=== PATIENT | female | born 1995 | race Two or more races ===

== ENCOUNTER 2025-04-18 12:21 | Emergency (ER) | payer BC ==
[~2025-04-18] VITALS: Ht 162.6 cm; Wt 90.7 kg
[2025-04-18 12:38] VITALS: BP 128/104; TEMP 98
--- NOTE | 2025-04-18 12:40 | NUR ---
Came in w/pt c/o STD pt states "I think I have the same thing + discharge feel tired".
[2025-04-18] MEDS ORDERED: LIDOCAINE 1% INJ 50 ML MDV IJ ONE (13:11)
[2025-04-18] MEDS ORDERED: ONDANSETRON 4 MG TAB.RAPDIS ONE (13:11)
[2025-04-18] MEDS ORDERED: CEFTRIAXONE 500 MG VIAL ONE (13:11)
[2025-04-18] MEDS: ONDANSETRON 4 MG TAB.RAPDIS SL ONE (13:19)
[2025-04-18] MEDS: CEFTRIAXONE 1 G VIAL IM ONE (13:19)
[2025-04-18 13:33] LABS: PLATELET COUNT (AUTO) 398 K/uL (150-450); RED BLOOD CELL COUNT(AUTO) 4.74 MIL/uL (4.0-5.2); RED CELL DISTRIBUTION WIDTH 21.9 % (11.5-15.0); WHITE BLOOD COUNT (AUTO) 7.7 K/uL (4.3-11.0)
[2025-04-18 13:43] LABS: CALCIUM, SERUM 8.3 mg/dL (8.5-10.1); CREATININE 0.6 mg/dL (0.6-1.3); SODIUM SERUM 139.0 mmol/L (136-145); UREA NITROGEN, BLOOD 12.0 mg/dL (7-18)
[2025-04-18 13:45] LABS: APPEARANCE,URINE CLEAR (CLEAR); BLOOD, URINE NEGATIVE Ery/uL (NEGATIVE); LEUKOCYTE ESTERASE ,URINE NEGATIVE (NEGATIVE); NITRITE, URINE NEGATIVE (NEGATIVE); UGLUCOSE NEGATIVE (NEGATIVE)
[2025-04-18 13:47] LABS: ASPARTATE AMINOTRANSFERASE 17.0 U/L (15-37); TOTAL PROTEIN, SERUM 7.8 g/dL (6.4-8.2)
[2025-04-18] MEDS ORDERED: DOXY100C2 PO (14:56)
[2025-04-18] MEDS ORDERED: ONDA4TAB5 PO (14:56)
[2025-04-18 15:10] VITALS: O2SAT 100
[2025-04-18 21:57] LABS: HIV-1/2 ANTIBODY NON REACTIVE (NONREACTIVE)
[2025-04-19 09:10] LABS: RAPID PLASMA REAGIN QUAL. Reactive (Non Reactive); RPR, QUANT 1:1 titer (NonRea<1:1)
[2025-04-21 13:10] LABS: CHLAMYDIA TRACHOMATIS NAA Negative (Negative); NEISSERIA GONORRHOEAE NAA Negative (Negative)
== END 2025-04-18 15:11 | disposition home or self-care (01) ==
LOC: ER 12:32
DX: A64 Unspecified sexually transmitted disease (principal); R10.13 Epigastric pain; R11.0 Nausea
CPT/HCPCS: 99283; 86593; 86592; 96372; 85025; 80048; 83690; 80076; 81003; 87806; 87491; 87591; J3490; J0696; Q0162; 36415